=== PATIENT | male | born 1940 | race Caucasian/White ===

== ENCOUNTER 2017-02-08 20:02 | Emergency (ER) | payer MEDICARE, BC ==
[2017-02-08 21:01] VITALS: BP 146/82
--- NOTE | 2017-02-08 21:52 | EDM.PDOC ---
ED HPI GENERAL MEDICAL PROBLEM - General Chief Complaint: Skin Complaint Stated Complaint: RIGHT LEG SCRAPE Time Seen by Provider: 02/08/17 20:47 Source of Information: Reports: Patient History Limitations: Reports: No Limitations - History of Present Illness INITIAL COMMENTS - FREE TEXT/NARRATIVE: This patient scraped his right schwarz or calf against a boat dock and got a large skin tear. Denies Pain Score (Numeric/FACES): 0 - Related Data Allergies Allergy/AdvReac Type Severity Reaction Status Date / Time No Known Allergies Allergy Verified 02/08/17 20:49 Home Meds: Home Meds Warfarin [Coumadin] 6 mg PO DAILY 02/08/17 [History] Past Medical History HEENT History: Reports: Impaired Vision Cardiovascular History: Reports: Afib, Hypertension Genitourinary History: Reports: Prostate Disorder Other Genitourinary History: radiation on prostate Oncologic (Cancer) History: Reports: Prostate - Infectious Disease History Infectious Disease History: Reports: Chicken Pox, Measles, Mumps - Past Surgical History HEENT Surgical History: Reports: Tonsillectomy GI Surgical History: Reports: Colonoscopy, Hernia, Inguinal Musculoskeletal Surgical History: Reports: Knee Replacement, Other (See Below) Other Musculoskeletal Surgeries/Procedures:: Plate l ankle Social & Family History - Tobacco Use Smoking Status *Q: Never Smoker Second Hand Smoke Exposure: No - Caffeine Use Caffeine Use: Reports: Soda - Alcohol Use Days Per Week of Alcohol Use: 2 Number of Drinks Per Day: 3 Total Drinks Per Week: 6 - Recreational Drug Use Recreational Drug Use: No ED ROS GENERAL - Review of Systems Review Of Systems: ROS reveals no pertinent complaints other than HPI. ED EXAM, SKIN/RASH Exam: See Below Exam Limited By: No Limitations General Appearance: Alert, WD/WN, No Apparent Distress Skin: Other (There is a large skin tear about 6 cm across on the right lower leg or schwarz anteriorly just lateral to the midline.) Course - Vital Signs Last Recorded V/S: Last Vital Signs Temp 36.9 C 02/08/17 20:59 Pulse 70 02/08/17 20:59 Resp 16 02/08/17 20:59 BP 146/82 H 02/08/17 20:59 Pulse Ox 96 02/08/17 20:59 - Re-Assessments/Exams Free Text/Narrative Re-Assessment/Exam: 02/08/17 21:48 Laceration repair. The wound was cleaned with saline gauze and lavage. The skin flap was carefully stretched and the margins re-attached with Dermabond with the assistance of a nurse. A non-adherent dressing was applied. Departure - Departure Time of Disposition: 21:50 Disposition: Home, Self-Care 01 Condition: Fair Clinical Impression: Skin tear of right lower leg without complication - Discharge Information Referrals: PCP,None [Primary Care Provider] - Additional Instructions: keep the wound covered with a non-adherent dressing. Change the dressing daily. Remove it very carefully so you don't pull the flap loose it's very delicate. you should expect some continuing drainage from the bottom of the wound. Don't put any kind of ointment on it. You may gently wash it with soap and water daily. The skin will either re-attach itself as a skin graft or will dry up and slough off in about a week to 10 days.
== END 2017-02-08 22:26 | disposition home or self-care (01) ==
LOC: JP.ED 20:02
DX: S81.811A Laceration without foreign body, right lower leg, initial encounter (principal); I48.91 Unspecified atrial fibrillation; I10 Essential (primary) hypertension; Z79.01 Long term (current) use of anticoagulants; Z98.890 Other specified postprocedural states; Z96.659 Presence of unspecified artificial knee joint; Z85.46 Personal history of malignant neoplasm of prostate; W22.8XXA Striking against or struck by other objects, initial encounter
CPT/HCPCS: 12002; 99283-25